=== PATIENT | male | born 1965 | race Caucasian/White ===

== ENCOUNTER 2018-10-05 20:38 | Emergency (ER) | payer MEDICARE, MEDICAID ==
[~2018-10-05] VITALS: Ht 167.6 cm; Wt 83.9 kg
[~2018-10-05 20:38] MED LIST: CLON0.5T60 PO; ENXP80I.8 SQ; GBPN100C PO; LISI20TA PO; MTF500T PO; OXYC-272 PO; SIMV20TA3 PO; WRF2.5T PO; WRF5T PO
--- OUTSIDE RECORDS SUMMARY | 2018-10-05 20:43 | XMS REPORT ---
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.3410 Active 82182368 Problem Small bowel obstruction K56.609 Active 889643895 Problem DVT (deep venous thrombosis) I82.409 Active 865579314 Problem Hyperlipidemia E78.5 Active 22544943 Problem Hyponatremia E87.1 Active 73634892 Problem Pulmonary embolism I26.99 Active 35520095 ALLERGIES Substance Reaction Event Type Date Status Allopurinol shortness of breath Drug Allergy Jul, Active ENCOUNTERS Encounter Location Date Diagnosis [address] [address] Oct, [address] [address] Jul, [address] [address] Jul, Hyperlipidemia E78.5 ; Hypertension I10 ; 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 ; Type 2 diabetes mellitus E11.9 ; Pulmonary embolism I26.99 ; Colon cancer C18.9 ; Chronic pancreatitis K86.1 ; Hyponatremia E87.1 ; DVT (deep venous thrombosis) I82.409 ; Small bowel obstruction K56.609 and Chronic gout due to renal impairment, right hand, 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.[address] [place] [address] Jun, [address] [address] Jun, [address] [address] Jun, IMMUNIZATIONS No Known Immunizations SOCIAL HISTORY Never Assessed REASON FOR VISIT Establish Care PLAN OF CARE Activity Details Follow Up 3 Months Reason:NIDDM fu VITAL SIGNS Height 5'6.5" in 2018-07-15 Weight 195 lbs 2018-07-15 BMI 31 kg/m2 2018-07-15 Blood pressure systolic 142 mmHg 2018-07-15 Blood pressure diastolic 82 mmHg 2018-07-15 MEDICATIONS Medication Instructions Dosage Frequency Start Date End Date Duration Status Albuterol Sulfate HFA 108 (90 Base) MCG/ACT Inhalation every 6 hrs 2 puffs as needed 6h Active Levemir FlexTouch 100 UNIT/ML Subcutaneous at bedtime 40 units Active Gabapentin 300 MG Orally 3 times a day 1 capsule 8h 30 day(s) Active Baclofen 10 MG Orally once daily as needed 1 tablet with food or milk 30 day(s) Active Requip 2 MG Orally Once a day 1 tablet before bedtime 24h 30 day(s) Active Metformin HCl 1000 MG Orally bid 1 tablet with a meal 12h Jun, 30 day(s) Active Fenofibrate 145 MG Orally Once a day 1 tablet with food 24h Jun, 30 day(s) Active Hydrocodone-Acetaminophen 7.5-325 MG Orally every 6 hrs 1 tablet as needed 6h Jun, 15 days Active Pepcid 20 MG Orally 2 times a day 1 tablet at bedtime 12h 30 day(s) Active Fentanyl 75 MCG/HR Transdermal EVERY 3 DAYS 1 patch to skin Jul, 30 days Active Zolpidem Tartrate 10 MG Orally Once a day 1 tablet at bedtime as needed 24h Active Contour Next Test - as directed Active Carafate 1 GM Orally 3 times a day 1 tablet on an empty stomach 8h 30 day(s) Active Fish Oil 1000 MG Orally Once a day 1 capsule 24h 30 day(s) Active Eliquis 5 MG Orally Once a day 1 tablet 24h Active Celexa 20 MG Orally Once a day 1 tablet 24h 30 day(s) Active RESULTS No Results PROCEDURES Procedure Date Ordered Result Body Site [facility] VISIT ESTABLISHED PATIENT July 15, 2018 INSTRUCTIONS MEDICATIONS ADMINISTERED No Known Medications MEDICAL (GENERAL) HISTORY Type Description Date Medical History Hyperlipidemia Medical History Hypertension Medical History Factor V deficiency Medical History Type 2 diabetes mellitus Medical History Pulmonary embolism Medical History Colon cancer Medical History Chronic pancreatitis Medical History Hyponatremia Medical History DVT (deep venous thrombosis) Medical History Small bowel obstruction Medical History Chronic gout due to renal impairment, right hand, without tophus (tophi) Surgical History colon resection Surgical History colonoscopy Surgical History finger surgery Surgical History left knee arthroscopy Surgical History right knee arthroscopy Surgical History testicular removal
--- OUTSIDE RECORDS SUMMARY | 2018-10-05 20:44 | XMS REPORT ---
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 1119494 Problem Type 2 diabetes mellitus E11.9 Active 63057472 Problem Hypertension I10 Active 53937526 Problem Chronic pancreatitis K86.1 Active 101997670 Problem Chronic gout due to renal impairment, right hand, 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.3410 Active 23001976 Problem Small bowel obstruction K56.609 Active 208862722 Problem DVT (deep venous thrombosis) I82.409 Active 295104006 Problem Hyperlipidemia E78.5 Active 56316721 Problem Hyponatremia E87.1 Active 23719426 Problem Pulmonary embolism I26.99 Active 79819889 ALLERGIES No Information ENCOUNTERS Encounter Location Date Diagnosis [address] [address] Oct, [address] [address] Jul, [address] [address] Jul, Hyperlipidemia E78.5 ; Hypertension I10 ; 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 ; Type 2 diabetes mellitus E11.9 ; Pulmonary embolism I26.99 ; Colon cancer C18.9 ; Chronic pancreatitis K86.1 ; Hyponatremia E87.1 ; DVT (deep venous thrombosis) I82.409 ; Small bowel obstruction K56.609 and Chronic gout due to renal impairment, right hand, 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.[address] [address] Jun, [address] [address] Jun, [address] [address] Jun, IMMUNIZATIONS No Known Immunizations SOCIAL HISTORY Never Assessed REASON FOR VISIT PA FOR FENTANYL PLAN OF CARE VITAL SIGNS MEDICATIONS Unknown Medications RESULTS No Results PROCEDURES No Known procedures INSTRUCTIONS MEDICATIONS ADMINISTERED No Known Medications MEDICAL [...]
--- OUTSIDE RECORDS SUMMARY | 2018-10-05 20:44 | XMS REPORT | Continuity of Care Document ---
Author Organization Unknown Address Unknown Allergies There is no data. Medications There is no data. Problems There is no data. Procedures There is no data. Results There is no data. Encounters ACCT No. Visit Date/Time Discharge Status Pt. Type Provider Facility Loc./Unit Complaint [id number] 06/05/2013 15:36:00 06/05/2013 23:59:59 CLS Outpatient [id number] 04/15/2013 11:33:00 04/15/2013 23:59:59 CLS Outpatient [id number] 04/10/2013 23:29:00 04/10/2013 23:59:59 CLS Outpatient [id number] 04/01/2013 10:59:00 04/01/2013 23:59:59 CLS Outpatient [id number] 03/30/2013 22:31:00 03/30/2013 23:59:59 CLS Outpatient [id number] 03/25/2013 15:13:00 03/25/2013 23:59:59 CLS Outpatient [id number] 01/09/2013 08:00:00 01/09/2013 23:59:59 CLS Outpatient [id number] 01/08/2013 15:34:00 01/08/2013 23:59:59 CLS Outpatient [id number] 12/28/2012 23:24:00 12/28/2012 23:59:59 CLS Outpatient [id number] 12/17/2012 10:11:00 12/17/2012 23:59:59 CLS Outpatient [id number] 12/16/2012 19:58:00 12/16/2012 23:59:59 CLS Outpatient [id number] 12/12/2012 13:54:00 12/12/2012 23:59:59 CLS Outpatient [id number] 11/28/2012 17:09:00 11/28/2012 23:59:59 CLS Outpatient [id number] 11/21/2012 19:15:00 11/21/2012 23:59:59 CLS Outpatient [id number] 10/09/2012 10:25:00 10/09/2012 23:59:59 CLS Outpatient [id number] 07/15/2018 09:00:00 07/15/2018 23:59:59 CLS Outpatient [place], MILANA GONZALEZ
[2018-10-05] MEDS ORDERED: AMOX500C2 PO (21:52)
--- NOTE | 2018-10-05 21:54 | ED EENT ---
History of Present Illness General Chief Complaint: Dental Problems/Pain Stated Complaint: DENTAL PAIN Nursing Triage Note: states right front Source: patient Exam Limitations: no limitations History of Present Illness Date Seen by Provider: October 05, 2018 Time Seen by Provider: 21:40 Initial Comments Patient presents to ER by private conveyance with the last 3 or 4 days progressively worsening pain in his right maxillary frontal teeth. He knows the need to be pulled just hasn't had time to do it and being that it is he has not been able to get in with a dentist. He's been using Tylenol and Motrin. He is on Eliquis for factor V Leiden. No fever chills swelli ng or discharge from the mouth. Allergies and Home Medications Allergies Coded Allergies: No Known Drug Allergies (Unverified , 08/27/11) Home Medications Clonazepam 0.5 Mg/Tab Tab.rapdis, 1 EACH PO BID, (Reported) Enoxaparin Sodium 80 Mg/0.8 Ml Disp.syrin, 1 EACH SQ DAILY, (Reported) Gabapentin 100 Mg Cap, 100 MG PO TID, (Reported) Lisinopril 20 Mg Tablet, 20 MG PO BID, (Reported) Metformin Hcl 500 Mg Tablet, 1 EACH PO BID WITH MEALS, (Reported) Oxycodone Hcl/Acetaminophen 1 Tab Tablet, 1 TAB PO Q4H PRN, (Reported) Simvastatin 20 Mg Tablet, 20 MG PO HS, (Reported) Warfarin Sod 5 Mg Tab, 5 MG PO MORNING, (Reported) Warfarin Sod 2.5 Mg Tab, 2.5 MG PO PM, (Reported) Patient Home Medication List Home Medication List Reviewed: Yes Review of Systems Review of Systems Constitutional: No chills, No diaphoresis Eyes: Denies Blurred Vision, Denies Drainage Ears: Denies Dizziness, Denies Pain Nose: denies clots, denies congestion Mouth: see HPI; denies clots, denies loose teeth Past Pvkkgdw-Kbggmx-Czctsm Hx Patient Social History Alcohol Use: Denies Use Recreational Drug Use: No Smoking Status: Current Everyday Smoker Type Used: Cigarettes Recent Foreign Travel: No Contact w/Someone Who Travel: No Recent Infectious Disease Expo: No Immunizations Up To Date Date of Influenza Vaccine: Jun 13, 2011 Physical Exam Vital Signs Vital Signs - First Documented 10/05/18 20:45 Temp 97.3 Pulse 62 Resp 18 B/P (MAP) 178/88 (118) Height, Weight, BMI Height: 5'6.00" Weight: 185lbs. oz. 83.217220vr; BMI Method:Stated General Appearance: WD/WN, no apparent distress Eyes: bilateral eye normal inspection, bilateral eye PERRL, bilateral eye EOMI Ears: bilateral ear auricle normal, bilateral ear canal normal, bilateral ear TM normal Nose: normal inspection; No active bleeding Mouth/Throat: other (advanced dental caries, nearly edentulous. No evidence of overt abscess.) Progress/Results/Core Measures Results/Orders My Orders Orders - IRVIN HERRERA Lidocaine 2% Viscous 15 Ml (Xylocaine Vi (10/05/18 22:00) Vital Signs/I&O 10/05/18 20:45 Temp 97.3 Pulse 62 Resp 18 B/P (MAP) 178/88 (118) Blood Pressure Mean: 118 Departure Impression Primary Impression: Dental caries Disposition: 01 HOME, SELF-CARE Condition: Stable Departure-Patient Inst. Decision time for Depature: 21:51 Referrals: MILANA FUNG MD (PCP/Family) Primary Care Physician Patient Instructions: Dental Pain (DC) Add. Discharge Instructions: Amoxicillin one capsule 3 times a day with food for the next week. Tylenol 1000 mg every 8 hours as necessary for pain. Apply 5-10 mL of viscous lidocaine on the gauze directly onto the tooth every 4 hours as needed for breakthrough pain. Follow-up with a dentist this week. All discharge instructions reviewed with patient and/or family. Voiced understanding. Scripts Amoxicillin (Amoxicillin) 500 Mg Capsule 500 MG PO TID, #21 CAP 0 Refills Prov: IRVIN HERRERA 10/05/18 IRVIN HERRERA October 05, 2018 21:54
[2018-10-05 22:00] VITALS: BP 165/90
[2018-10-05] MEDS ORDERED: LIDOCAINE 2% VISCOUS 15 ML UDC PO ONE (22:00)
== END 2018-10-05 21:50 | disposition home or self-care (01) ==
LOC: EDUNIT# 20:38 → ER FS 20:40
DX: K02.9 Dental caries, unspecified (principal); D68.2 Hereditary deficiency of other clotting factors; F17.210 Nicotine dependence, cigarettes, uncomplicated; Z79.01 Long term (current) use of anticoagulants; Z79.84 Long term (current) use of oral hypoglycemic drugs

== ENCOUNTER → 2019-06-05 | Outpatient (CLI) | payer MEDICARE, MEDICAID ==
[~2019-06-05] MED LIST changes: +AMOX500C2 PO; +CATHETER FLUSH 10 ML SYR IV PRN; +HOLD METFORMIN - RECEIVED CONTRAST 20 ML VIAL IV SCH; +IOHEXOL 350 MG/ML 100 ML (OMNIPAQUE 350) VIAL IV ONE; +NS 100 ML (IVPB) BAG IV ONE
[2019-06-05 09:19] LABS: ALANINE AMINOTRANSFERASE 35 U/L (0-55); ALBUMIN 4.3 GM/DL (3.2-4.5); ALKALINE PHOSPHATASE 47 U/L (40-136); BILIRUBIN,TOTAL 0.2 MG/DL (0.1-1.0); BUN/CREATININE RATIO 29; CALCIUM 9.6 MG/DL (8.5-10.1); CARBON DIOXIDE 28 MMOL/L (21-32); CHLORIDE 102 MMOL/L (98-107); CREATININE SERUM 0.99 MG/DL (0.60-1.30); GFR ESTIMATED > 60; GLUCOSE 97 MG/DL (70-105); SODIUM 142 MMOL/L (135-145); TOTAL PROTEIN 7.2 GM/DL (6.4-8.2)
--- NOTE | 2019-06-05 11:10 | Diagnostic Imaging Report ---
PROCEDURE: CT abdomen with contrast only. TECHNIQUE: Multiple contiguous axial images were obtained through the abdomen after the administration of intravenous contrast. Auto Exposure Controls were utilized during the CT exam to meet ALARA standards for radiation dose reduction. INDICATION: Abdominal pain. FINDINGS: The previous CT abdomen/pelvis exam of 09/06/2011 noted postsurgical changes, consistent with a prior right hemicolectomy. There was no acute abnormality identified. In the interval since the prior exam, the patient has undergone another surgical procedure and there is now an ostomy site overlying the right lower quadrant. It also appears that much of the colon has also been resected. Correlation with the patient's surgical history would be recommended. There is no evidence for obstruction of the bowel in the region of the ostomy site but there is herniation of the mesenteric fat into the peristomal region. Reportedly, the patient had a cyst removed from his pancreas two years ago. There was no evidence for a cyst involving the pancreas on the 2011 exam. On this study, there is still no sign of a cystic mass arising from the pancreas. The liver is of lower density than usually seen. This does suggest fatty metamorphosis. In the interval since the prior exam, the gallbladder has also been resected. The spleen, pancreas, adrenals, kidneys, aorta, and inferior vena cava show no sign of an acute abnormality. The stomach is partially filled with fluid and consequently difficult to assess. The lung bases are clear. The bone windows show no sign of a fracture or of a destructive lesion. IMPRESSION: 1. In the interval since the prior exam, the patient has undergone a cholecystectomy and most likely at least a partial resection of the colon. There is now an ostomy site in place on the right. Correlation with the patient's surgical history would be recommended. 2. There is herniation of the mesenteric fat into the ostomy site. There is no obstruction of the bowel in this area, however. 3. There is no acute abnormality of the abdomen noted, otherwise. Dictated by: Dictated on workstation # [id number]
== END ==
LOC: LAB FS 08:15
PROVIDERS: ATTEND Family Medicine
DX: I10 Essential (primary) hypertension (principal); E11.9 Type 2 diabetes mellitus without complications; E78.5 Hyperlipidemia, unspecified; Z93.2 Ileostomy status
CPT/HCPCS: 36415; 74160; 80053

== ENCOUNTER 2019-10-01 04:07 | Inpatient (IN) | payer MEDICARE, MEDICAID ==
[~2019-10-01] VITALS: Ht 170.2 cm; Wt 86.1 kg
[~2019-10-01 04:07] MED LIST changes: -CATHETER FLUSH 10 ML SYR IV PRN; -HOLD METFORMIN - RECEIVED CONTRAST 20 ML VIAL IV SCH; -IOHEXOL 350 MG/ML 100 ML (OMNIPAQUE 350) VIAL IV ONE; -NS 100 ML (IVPB) BAG IV ONE
--- OUTSIDE RECORDS SUMMARY | 2019-10-01 04:13 | XMS REPORT | Continuity of Care Document ---
Author Organization Unknown Address Unknown Phone Unavailable Allergies Active Description Code Type Severity Reaction Onset Reported/Identified Relationship to Patient Clinical Status Yes LISINOPRIL SEVERE SEVERE Yes No Known Drug Allergies [id number] Drug Allergy Unknown N/A 08/27/2011 Medications Medication Packaging Start Date St op Date Route Dosage Sig NORMAL SALINE 1000CC IV BAG INJ 0.9 % (NS 1000CC IV BAG) ml 01/05/2019 01/20/2019 CONTINUOUSEVERY 0 Hour NORMAL SALINE 1000CC IV BAG INJ 0.9 % (NS 1000CC IV BAG) ml 01/19/2019 02/03/2019 CONTINUOUSEVERY 0 Hour CEFAZOLIN VIAL INJ 1 GM (ANCEF) GM 01/19/2019 01/19/2019 ONCE&1215 Problems Date Dx Coded Attending Type Code Diagnosis Diagnosed By 10/05/2018 ADY GONZALES MD Ot 415.19 OTH PULMON EMBOLISM/INFARCT 10/05/2018 ADY GONZALES MD Ot 415.19 OTH PULMON EMBOLISM/INFARCT 10/05/2018 IRVIN HERRERA MD Ot D68. 2 HEREDITARY DEFICIENCY OF OTHER CLOTTING 10/05/2018 IRVIN HERRERA MD Ot F17.210 NICOTINE DEPENDENCE, CIGARETTES, UNCOMPL 10/05/2018 IRVIN HERRERA MD Ot K02. 9 DENTAL CARIES, UNSPECIFIED 10/05/2018 IRVIN HERRERA MD Ot K08. 89 OTHER SPECIFIED DISORDERS OF TEETH AND S 10/05/2018 IRVIN HERRERA MD Ot Z79. 01 FAMILY PSYCHOLOGIST (CURRENT) USE OF ANTICOAGULANT 10/05/2018 IRVIN HERRERA MD Ot Z79. 84 FAMILY PSYCHOLOGIST (CURRENT) USE OF ORAL HYPOGLYC 10/05/2018 ADY GONZALES MD Ot 415.19 OTH PULMON EMBOLISM/INFARCT 10/05/2018 ADY GONZALES MD Ot 415.19 OTH PULMON EMBOLISM/INFARCT 10/08/2018 IRVIN HERRERA MD Ot D68. 2 HEREDITARY DEFICIENCY OF OTHER CLOTTING 10/08/2018 IRVIN HERRERA MD Ot F17.210 NICOTINE DEPENDENCE, CIGARETTES, UNCOMPL 10/08/2018 IRVIN HERRERA MD Ot K02. 9 DENTAL CARIES, UNSPECIFIED 10/08/2018 IRVIN HERRERA MD Ot K08. 89 OTHER SPECIFIED DISORDERS OF TEETH AND S 10/08/2018 IRVIN HERRERA MD Ot Z79. 01 FAMILY PSYCHOLOGIST (CURRENT) USE OF ANTICOAGULANT 10/08/2018 IRVIN HERRERA MD Ot Z79. 84 FAMILY PSYCHOLOGIST (CURRENT) USE OF ORAL HYPOGLYC 06/08/2019 SELF MILANA CANO Ot E11.9 TYPE 2 DIABETES MELLITUS WITHOUT COMPLIC 06/08/2019 SELF MILANA CANO Ot E78.5 HYPERLIPIDEMIA, UNSPECIFIED 06/08/2019 SELF MILANA CANO Ot I10 ESSENTIAL (PRIMARY) HYPERTENSION 06/08/2019 SELF MILANA CANO Ot Z93.2 ILEOSTOMY STATUS 06/18/2019 SELF MILANA CANO Ot E11.9 TYPE 2 DIABETES MELLITUS WITHOUT COMPLIC 06/18/2019 SELF MILANA CANO Ot E78.5 HYPERLIPIDEMIA, UNSPECIFIED 06/18/2019 SELF MILANA CANO Ot I10 ESSENTIAL (PRIMARY) HYPERTENSION 06/18/2019 SELF MILANA CANO Ot Z93.2 ILEOSTOMY STATUS 08/21/2019 SELF MILANA CANO Ot E11.9 TYPE 2 DIABETES MELLITUS WITHOUT COMPLIC 08/21/2019 SELF MILANA CANO Ot E78.5 HYPERLIPIDEMIA, UNSPECIFIED 08/21/2019 SELF MILANA CANO Ot I10 ESSENTIAL (PRIMARY) HYPERTENSION 08/21/2019 SELF MILANA CANO Ot Z93.2 ILEOSTOMY STATUS Procedures There is no data. Results Test Result Range LIPID PANEL - 10/15/18 09:52 CHOLESTEROL, TOTAL 194 mg/dL <200 HDL CHOLESTEROL 36 mg/dL >40 TRIGLYCERIDES 681 mg/dL <150 LDL-CHOLESTEROL mg/dL (calc) NRG CHOL/HDLC RATIO 5.4 (calc) <5.0 NON HDL CHOLESTEROL 158 mg/dL (calc) <13 0 MICROALBUMIN/CREATININE RATIO, URINE - 0 10/15/18 09:52 CREATININE, RANDOM URINE 211 mg/dL 20-32 0 MICROALBUMIN 11.6 mg/dL See Note: MICROALBUMIN/CREATININE RATIO, RANDOM URINE 55 mcg /mg creat <30 CMP - 10/15/18 09:52 GLUCOSE 166 mg/dL 65-99 UREA NITROGEN (BUN) 15 mg/dL 7-25 CREATININE 0.71 mg/dL 0.70-1.33 eGFR NON-AFR. [facility] 106 mL/min/1.73m2 > OR = 60 eGFR 122 mL/min/1.73m2 > OR = 60 BUN/CREATININE RATIO NOT APPLICABLE (calc) 6-22 SODIUM 143 mmol/L 135-146 POTASSIUM 4.0 mmol/L 3.5-5.3 CHLORIDE 107 mmol/L 98-110 CARBON DIOXIDE 26 mmol/L 20-32 CALCIUM 9.3 mg/dL 8.6-10.3 PROTEIN, TOTAL 6.8 g/dL 6.1-8.1 ALBUMIN 4.0 g/dL 3.6-5.1 GLOBULIN 2.8 g/dL (calc) 1.9-3.7 ALBUMIN/GLOBULIN RATIO 1.4 (calc) 1.0-2. 5 BILIRUBIN, TOTAL 0.3 mg/dL 0.2-1.2 ALKALINE PHOSPHATASE 59 U/L 40-115 AST 45 U/L 10-35 ALT 42 U/L 9-46 A1C - 10/15/18 09:52 HEMOGLOBIN A1c 7.1 % of total Hgb <5.7 Comprehensive Metabolic Panel - 01/01/19 08:38 Albumin 4.0 g/dL 3.6-5.1 ALP 54 U/L 35-130 ALT 47 U/L 6-45 Anion Gap 14 6-14 AST 38 U/L 2-40 BUN 13 mg/dL 5-25 Calcium 9.1 mg/dL 8.3-10.4 Chloride 103 mmol/L 95-114 CO2 25 mEq/L 22-33 Creat 0.79 mg/dL 0.50-1.50 eGFR 102 mL/min/1.73m2 >59 Globulin 2.8 g/dL 2.3-3.5 Glucose 120 mg/dL 70-110 Osmo 286 280-295 Potassium 4.2 mmol/L 3.5-5.3 Sodium 138 mmol/L 134-148 TBil 0.4 mg/dL 0.2-1.2 TP 6.8 g/dL 6.0-8.3 MRSA Screen - 01/01/19 08:38 FINAL CULTURE RESULTS MRSA POSITIVE Nasal Culture MEDIA PLATED Setup at 08:55 on 01/01/2019 Comprehensive metabolic panel - 06/05/19 08:37 Serum or plasma sodium measurement (moles/volume) 142 mmol/L 135-145 Serum or plasma potassium measurement (moles/volume) 4.0 mmol/L 3.6-5.0 Serum or plasma chloride measurement (moles/volume) 102 mmol/L 98-107 Carbon dioxide 28 mmol/L 21-32 Serum or plasma anion gap determination (moles/volume) 12 mmol/L 5-14 Serum or plasma urea nitrogen measurement (mass/volume ) 29 mg/dL 7-18 Serum or plasma creatinine measurement (mass/volume) 0.99 mg/dL 0.60-1.30 Serum or plasma urea nitrogen/creatinine mass ratio 29 NRG Serum or plasma creatinine measurement w ith calculation of estimated glomerular filtration rate > NRG Serum or plasma glucose measurement (mass/volume) 97 mg/dL 70-105 Serum or plasma calcium measurement (mass/volume) 9.6 mg/dL 8.5-10.1 Serum or plasma total bilirubin measurement (mass/volu me) 0.2 mg/dL 0.1-1.0 Serum or plasma alkaline phosphatase iram surement (enzymatic activity/volume) 47 U/L 40-136 Serum or plasma aspartate aminotransfera se measurement (enzymatic activity/volume) 30 U/L 5-34 Serum or plasma alanine aminotransferase measurement (enzymatic activity/volume) 35 U/L 0-55 Serum or plasma protein measurement (mass/volume) 7.2 g/dL 6.4-8.2 Serum or plasma albumin measurement (mass/volume) 4.3 g/dL 3.2-4.5 MICROALBUMIN/CREATININE RATIO, URINE - 0 08/25/19 12:08 CREATININE, RANDOM URINE 162 mg/dL 20-32 0 MICROALBUMIN 1.2 mg/dL See Note: MICROALBUMIN/CREATININE RATIO, RANDOM URINE 7 mcg/ mg creat <30 CMP - 08/25/19 12:08 GLUCOSE 240 mg/dL 65-99 UREA NITROGEN (BUN) 30 mg/dL 7-25 CREATININE 1.17 mg/dL 0.70-1.33 eGFR NON-AFR. [facility] 69 mL/min/1.73m2 > OR = 60 eGFR 80 mL/min/1.73m2 > OR = 60 BUN/CREATININE RATIO 26 (calc) 6-22 SODIUM 139 mmol/L 135-146 POTASSIUM 3.6 mmol/L 3.5-5.3 CHLORIDE 100 mmol/L 98-110 CARBON DIOXIDE 30 mmol/L 20-32 CALCIUM 9.5 mg/dL 8.6-10.3 PROTEIN, TOTAL 6.9 g/dL 6.1-8.1 ALBUMIN 4.2 g/dL 3.6-5.1 GLOBULIN 2.7 g/dL (calc) 1.9-3.7 ALBUMIN/GLOBULIN RATIO 1.6 (calc) 1.0-2. 5 BILIRUBIN, TOTAL 0.4 mg/dL 0.2-1.2 ALKALINE PHOSPHATASE 41 U/L 35-144 AST 26 U/L 10-35 ALT 23 U/L 9-46 Encounters ACCT No. Visit Date/Time Discharge Status Pt. Type Provider Facility Loc./Unit Complaint [id number] 01/19/2019 00:00:00 01/19/2019 15:42: 00 DIS Outpatient Lucille Michaelcuauhtemoc [id number] 01/05/2019 00:00:00 01/05/2019 10:28: 00 DIS Outpatient Haja Adkins [id number] 01/01/2019 08:20:00 01/01/2019 23:59: 00 DIS Outpatient Lucille Michaelcuauhtemoc [id number] 12/31/2018 14:54:38 Document Registration [id number] 05/21/2019 16:15:00 05/21/2019 23:59: 59 CLS Outpatient MILANA FUNG [facility] [id number] 08/25/2019 10:00:00 Document Registration [id number] 10/15/2018 09:30:00 Document Registration [id number] 06/05/2019 08:15:00 020 23:59:59 CLS Outpatient MILANA FUNG MD [facility] LAB FS ILEOSTOMY PRESENT [id number] 10/05/2018 20:40:00 019 21:50:00 DIS Emergency IRVIN HERRERA MD [facility] ER FS DENTAL PAIN [id number] 06/05/2013 15:36:00 014 23:59:59 CLS Outpatient ADY GONZALES MD [facility] LABNPT PULMONARY EMBOLISM AND INFARCTION [id number] 04/15/2013 11:33:00 013 23:59:59 CLS Outpatient ADY GONZALES MD [facility] LABNPT PULMONARY EMBOLISM [id number] 04/10/2013 23:29:00 23:59:59 CLS Outpatient [id number] 04/01/2013 10:59:00 23:59:59 CLS Outpatient [id number] 03/30/2013 22:31:00 23:59:59 CLS Outpatient [id number] 03/25/2013 15:13:00 23:59:59 CLS Outpatient [id number] 01/09/2013 08:00:00 23:59:59 CLS Outpatient [id number] 01/08/2013 15:34:00 23:59:59 CLS Outpatient [id number] 12/28/2012 23:24:00 23:59:59 CLS Outpatient [id number] 12/17/2012 10:11:00 23:59:59 CLS Outpatient [id number] 12/16/2012 19:58:00 23:59:59 CLS Outpatient [id number] 12/12/2012 13:54:00 23:59:59 CLS Outpatient [id number] 11/28/2012 17:09:00 23:59:59 CLS Outpatient [id number] 11/21/2012 19:15:00 23:59:59 CLS Outpatient [id number] 10/09/2012 10:25:00 013 23:59:59 CLS Outpatient [id number] 10/01/2019 04:10:[address] Emergency JULIO CANO, [facility] ER FS VOMITING
[2019-10-01] MEDS ORDERED: NS IV 1000 ML 1,000 ML IV STA ×2 (04:16→05:30)
--- NOTE | 2019-10-01 04:20 | ED General ---
General Stated Complaint: VOMITING Source of Information: Patient, EMS, EMS Notes Reviewed, Old Records, RN/MD Exam Limitations: No Limitations (HECTOR GALDAMEZ MD) History of Present Illness Date Seen by Provider: October 01, 2019 Time Seen by Provider: 04:10 Initial Comments This patient is a 54-year-old male presents to the emergency department for nausea vomiting. Patient states he been having issues with nausea and dry heaving for the past 4 days and started vomiting yesterday. Patient states she feels weak. Blood pressure low on arrival is 88 systolic. Patient does have a colostomy bags had multiple surgeries on his abdomen in the past due to cancer. Patient also has long history of acute pancreatitis. Patient does not describe any significant abdominal pain. Does have positive stool in his colostomy. Patient has a history of doing the same with nausea and reflux dry heaving and vomiting. We will do medical evaluation treatment is needed. Timing/Duration: 4-5 Days Severity: Moderate Associated Systoms: Nausea/Vomiting (HECTOR GALDAMEZ MD) Allergies and Home Medications Allergies Coded Allergies: No Known Drug Allergies (Unverified , 08/27/11) Home Medications Amoxicillin 500 Mg Capsule, 500 MG PO TID Prescribed by: IRVIN HERRERA on 10/05/182151 Clonazepam 0.5 Mg/Tab Tab.rapdis, 1 EACH PO BID, (Reported) Enoxaparin Sodium 80 Mg/0.8 Ml Disp.syrin, 1 EACH SQ DAILY, (Reported) Gabapentin 100 Mg Cap, 100 MG PO TID, (Reported) Lisinopril 20 Mg Tablet, 20 MG PO BID, (Reported) Metformin Hcl 500 Mg Tablet, 1 EACH PO BID WITH MEALS, (Reported) Oxycodone Hcl/Acetaminophen 1 Tab Tablet, 1 TAB PO Q4H PRN, (Reported) Simvastatin 20 Mg Tablet, 20 MG PO HS, (Reported) Warfarin Sod 5 Mg Tab, 5 MG PO MORNING, (Reported) Warfarin Sod 2.5 Mg Tab, 2.5 MG PO PM, (Reported) Patient Home Medication List Home Medication List Reviewed: Yes (HECTOR GALDAMEZ MD) Review of Systems Review of Systems Constitutional: no symptoms reported; No see HPI, No chills, No diaphoresis, No dizziness, No fever, No malaise, No weakness, No weight gain, No weight loss, No other EENTM: No see HPI, No no symptoms reported, No ear discharge, No hearing loss, No ear pain, No blurred vision, No double vision, No eye pain, No tearing, No vision loss, No dental problems, No hoarseness, No mouth pain, No mouth swelling, No epistaxis, No nose congestion, No nose pain, No throat pain, No throat swelling, No other Respiratory: No no symptoms reported, No see HPI, No cough, No dyspnea on exertion, No hemoptysis, No orthopnea, No phlegm, No short of breath, No strido r, No wheezing, No other Cardiovascular: No no symptoms reported, No see HPI, No chest pain, No edema, No Hx of Intervention, No palpitations, No syncope, No vascular heart diseas, No other Gastrointestinal: No RUQ, No LUQ, No RLQ, No LLQ, No no symptoms reported, No see HPI, No abdominal pain, No constipation, No diarrhea, No dysphagia, No hematemesis, No heartburn, No jaundice, No loss of appetite, No melena; nausea, vomiting; No other Genitourinary: No no symptoms reported, No see HPI, No decreased output, No discharge, No dysuria, No frequency, No hematuria, No hesitancy, No incontinence, No nocturia, No pain, No other Musculoskeletal: No no symptoms reported, No see HPI, No back pain, No gout, No joint pain, No joint swelling, No muscle pain, No muscle stiffness, No muscle cramps, No muscle twitching, No muscle weakness, No neck pain, No other Skin: No no symptoms reported, No see HPI, No change in color, No change in hair/nails, No dryness, No hx of skin cancer, No lesions, No lumps, No pruritus, No rash, No other (HECTOR GALDAMEZ MD) All Other Systems Reviewed Negative Unless Noted: Yes (HECTOR GALDAMEZ MD) Past Dhxpdvb-Ktkgcp-Yknkwz Hx Patient Social History Type Used: Cigarettes Recent Foreign Travel: No Contact w/Someone Who Travel: No (HECTOR GALDAMEZ MD) Immunizations Up To Date Date of Influenza Vaccine: Jun 13, 2011 (HECTOR GALDAMEZ MD) Physical Exam Vital Signs Vital Signs - First Documented 10/01/19 04:20 Temp 36.6 Pulse 57 Resp 20 B/P (MAP) 85/45 (58) Pulse Ox 98 O2 Delivery Room Air (PERLA LOYA ) Vital Signs Capillary Refill : (HECTOR GALDAMEZ MD) Height, Weight, BMI Height: 5'6.00" Weight: 185lbs. oz. 83.636845oc; BMI Method:Stated General Appearance: No Apparent Distress, WD/WN HEENT: PERRL/EOMI, TMs Normal, Normal ENT Inspection, Pharynx Normal Neck: Full Range of Motion, Normal Inspection, Non Tender, Supple Respiratory: Chest Non Tender, Lungs Clear, Normal Breath Sounds, No Accessory Muscle Use, No Respiratory Distress Cardiovascular: Regular Rate, Rhythm, No Edema, No Gallop, No JVD, No Murmur, Normal Peripheral Pulses Gastrointestinal: Normal Bowel Sounds, No Organomegaly, No Pulsatile Mass, Non Tender, Soft, Other (colostomy in the right lower side) Extremity: Normal Capillary Refill, Normal Inspection, Normal Range of Motion, Non Tender, No Calf Tenderness, No Pedal Edema Neurologic/Psychiatric: Alert, Oriented x3, No Motor/Sensory Deficits, Normal Mood/Affect Skin: Normal Color, Warm/Dry Lymphatic: No Adenopathy (HECTOR GALDAMEZ MD) Progress/Results/Core Measures Suspected Sepsis SIRS Temperature: Pulse: Respiratory Rate: Laboratory Tests 10/01/19 04:20: White Blood Count 6.0 Blood Pressure / Mean: Laboratory Tests 10/01/19 04:20: Creatinine 2.25H, Platelet Count 144, Total Bilirubin 0.3 (HECTOR GALDAMEZ MD) Results/Orders Lab Results Laboratory Tests Test 10/01/19 04:20 Range/Units White Blood Count 6.0 4.3-11.0 10^3/uL Red Blood Count 3.76 L 4.35-5.85 10^6/uL Hemoglobin 11.8 L 13.3-17.7 G/DL Hematocrit 35 L 40-54 % Mean Corpuscular Volume 93 80-99 FL Mean Corpuscular Hemoglobin 31 25-34 PG Mean Corpuscular Hemoglobin Concent 34 32-36 G/DL Red Cell Distribution Width 13.6 10.0-14.5 % Platelet Count 144 130-400 10^3/uL Mean Platelet Volume 9.4 7.4-10.4 FL Neutrophils (%) (Auto) 62 42-75 % Lymphocytes (%) (Auto) 32 12-44 % Monocytes (%) (Auto) 6 0-12 % Eosinophils (%) (Auto) 0 0-10 % Basophils (%) (Auto) 0 0-10 % Neutrophils # (Auto) 3.7 1.8-7.8 X 10^3 Lymphocytes # (Auto) 2.0 1.0-4.0 X 10^3 Monocytes # (Auto) 0.3 0.0-1.0 X 10^3 Eosinophils # (Auto) 10.0 H 0.0-0.3 10^3/uL Basophils # (Auto) 0.0 0.0-0.1 10^3/uL Sodium Level 137 135-145 MMOL/L Potassium Level 5.0 3.6-5.0 MMOL/L Chloride Level 104 98-107 MMOL/L Carbon Dioxide Level 18 L 21-32 MMOL/L Anion Gap 15 H 5-14 MMOL/L Blood Urea Nitrogen 93 H 7-18 MG/DL Creatinine 2.25 H 0.60-1.30 MG/DL Estimat Glomerular Filtration Rate 30 BUN/Creatinine Ratio 41 Glucose Level 147 H 70-105 MG/DL Calcium Level 9.4 8.5-10.1 MG/DL Corrected Calcium 9.4 8.5-10.1 MG/DL Total Bilirubin 0.3 0.1-1.0 MG/DL Aspartate Amino Transf (AST/SGOT) 28 5-34 U/L Alanine Aminotransferase (ALT/SGPT) 23 0-55 U/L Alkaline Phosphatase 41 40-136 U/L Total Protein 7.2 6.4-8.2 GM/DL Albumin 4.0 3.2-4.5 GM/DL Amylase Level 116 25-125 U/L Lipase 74 8-78 U/L (PERLA LOYA H DO) Medications Given in ED Current Medications Medications Dose Ordered Sig/Quin Route Start Time Stop Time Status Last Admin Dose Admin Ondansetron HCl 4 mg ONCE ONCE IVP 10/01/19 04:30 10/01/19 04:31 DC 10/01/19 04:31 4 MG (PERLA LOYA H DO) Vital Signs/I&O 10/01/19 04:20 Temp 36.6 Pulse 57 Resp 20 B/P (MAP) 85/45 (58) Pulse Ox 98 O2 Delivery Room Air (PERLA LOYA DO) Vital Signs/I&O Capillary Refill : (HECTOR GALDAMEZ MD) Progress Note : Time: 05:55 Progress Note Patient appears to be dehydrated. Creatinine is 2.25. Patient is receiving IV fluids at this time. Awaiting lab results. Care will be transferred to Dr. Francis for shift change. (HECTOR GALDAMEZ MD) Progress Note : Time: 06:05 Progress Note Report given by Dr. Galdamez to Dr. Loya. Patient has received 3 L of normal saline continues to have issues of dehydration his nausea vomiting has improved with the Zofran. Patient has an ileostomy for the past 6 years. Hemoglobin 11.8 sodium 137 potassium 5.0 blood sugar 147 a cemented GFR 30 creatinine 2.25. Patient had presented with 4 days of nausea and vomiting CT scan of the abdomen presents with IMPRESSION: No radiographic evidence of acute chest disease. Relatively gasless abdomen, without evidence of obstruction. No radiographic evidence of acute abdominal process. Dr. Peck's on-call I will call her in regard to admission for dehydration with severe chronic kidney disease. Case reviewed with Dr. Hong and she has accepted the patient diagnosis is gastroenteritis nausea vomiting dehydration 3 L of fluids IV still dehydrated chronic kidney disease stage IV and ileostomy. Patient has agreed to admission to [facility] (PERLA LOYA DO) ECG Initial ECG Impression Date: October 01, 2019 Initial ECG Impression Time: 04:21 Initial ECG Rate: 53 Initial ECG Rhythm: S.Dwayne Initial ECG Intervals: Normal Initial ECG Impression: Normal, Nonspecific Changes Comment Sinus rhythm heart rate 53 nonspecific interventricular conduction delay abnormal in. Q waves. Nonspecific EKG changes. Abnormal EKG. (HECTOR GALDAMEZ MD) Departure Impression Primary Impression: Gastroenteritis Additional Impressions: Dehydration Chronic kidney disease, stage IV (severe) Ileostomy in place Disposition: ADMITTED INPATIENT Condition: Improved Admissions Decision to Admit Reason: Admit from ER (General) (PERLA LOYA DO) Transfer Transfer Reason: Exceeds level of care Time Spoke to Accepting Phy: 07:[address] Hong has accepted the patient with a diagnosis of gastroenteritis with dehydration chronic kidney disease and ileostomy Transfer Time: 07:18 Transfer Facility: [facility] Method of Transfer: EMS (PERLA LOYA DO) Departure-Patient Inst. Referrals: MILANA FUNG MD (PCP/Family) Primary Care Physician Patient Instructions: Chronic Kidney Disease, Ileostomy Care, Dehydration, Adult (DC) Copy Copies To 1: DONTA PECK DO; MILANA FUNG MD, BRIAN W MD October 01, 2019 04:20 PERLA LOYA DO October 01, 2019 06:57
[2019-10-01] MEDS ORDERED: ONDANSETRON 4 MG/2 ML (SDV) Z0FRAN IVP ONE (04:30)
[2019-10-01 04:57] LABS: BASOPHILS % (AUTO) 0 % (0-10); EOSINOPHILS % (AUTO) 0 % (0-10); HEMATOCRIT 35 % (40-54); HEMOGLOBIN 11.8 G/DL (13.3-17.7); LYMPHOCYTES % (AUTO) 32 % (12-44); MEAN CORPUSCULAR HEMOGLOBIN 31 PG (25-34); MEAN CORPUSCULAR HGB CONC 34 G/DL (32-36); MEAN CORPUSCULAR VOLUME 93 FL (80-99); MEAN PLATELET VOLUME 9.4 FL (7.4-10.4); MONOCYTES % (AUTO) 6 % (0-12); NEUTROPHILS % (AUTO) 62 % (42-75); PLATELET COUNT 144 10^3/uL (130-400); RED CELL DISTRIBUTION WIDTH 13.6 % (10.0-14.5)
[2019-10-01 04:58] LABS: MONOCYTES # (AUTO) 0.3 X 10^3 (0.0-1.0); NEUTROPHILS # (AUTO) 3.7 X 10^3 (1.8-7.8)
[2019-10-01 05:20] LABS: BILIRUBIN,TOTAL 0.3 MG/DL (0.1-1.0); CALCIUM 9.4 MG/DL (8.5-10.1); CREATININE SERUM 2.25 MG/DL (0.60-1.30); TOTAL PROTEIN 7.2 GM/DL (6.4-8.2)
--- NOTE | 2019-10-01 06:01 | Diagnostic Imaging Report ---
EXAMINATION: Acute abdominal series TECHNIQUE: Single frontal view of the chest with AP upright and supine views of the abdomen INDICATION: Vomiting in patient with history of colon cancer. COMPARISON: CT abdomen performed on 06/05/2019. FINDINGS: The lungs are clear and the pulmonary vasculature is normal. No pneumothorax or large pleural effusion. Heart size and mediastinal contours are normal. No acute osseous abnormality is appreciated. There is mild gaseous distention of the stomach, with an otherwise relatively gasless abdomen. No evidence of obstruction. No pneumoperitoneum. No organomegaly or abnormal abdominal calcifications are appreciated. Surgical clips are demonstrated in the right upper abdominal quadrant. IMPRESSION: No radiographic evidence of acute chest disease. Relatively gasless abdomen. No evidence of obstruction or radiographic evidence to suggest an acute abdominal process. Dictated by: Dictated on workstation # [id number]
--- OUTSIDE RECORDS SUMMARY | 2019-10-01 07:57 | XMS REPORT | Continuity of Care Document ---
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 [place] 106 mL/min/1.73m2 > OR = 60 eGFR [...] 7-25 CREATININE 1.17 mg/dL 0.70-1.33 eGFR NON-AFR. [place] 69 mL/min/1.73m2 > OR = 60 eGFR [...] Status Pt. Type Provider Facility Loc./Unit Complaint [id number] 01/19/2019 00:00:00 01/19/2019 15:42: 00 DIS Outpatient Lucille Michaelcuauhtemoc [id number] 01/05/2019 00:00:00 01/05/2019 10:28: 00 DIS Outpatient Haja Adkins [id number] 01/01/2019 08:20:00 01/01/2019 23:59: 00 DIS Outpatient Lucille Michaelcuauhtemoc [id number] 12/31/2018 14:54:38 Document Registration [id number] 05/21/2019 16:15:00 05/21/2019 23:59: 59 CLS Outpatient MILANA FUNG [facility] [id number] 08/25/2019 10:00:00 Document Registration [id number] 10/15/2018 09:30:00 Document Registration [id number] 06/05/2019 08:15:00 020 23:59:59 CLS Outpatient MILANA FUNG MD [facility] LAB FS ILEOSTOMY PRESENT [id number] 10/05/2018 20:40:00 019 21:50:00 DIS Emergency IRVIN HERRERA MD [facility] ER FS DENTAL PAIN [id number] 06/05/2013 15:36:00 014 23:59:59 CLS Outpatient ADY GONZALES MD [facility] LABNPT PULMONARY EMBOLISM AND INFARCTION [id number] 04/15/2013 11:33:00 013 23:59:59 CLS Outpatient ADY GONZALES MD [facility] LABNPT PULMONARY EMBOLISM [id number] 04/10/2013 23:29:00 23:59:59 CLS Outpatient [id number] 04/01/2013 10:59:00 23:59:59 CLS Outpatient [id number] 03/30/2013 22:31:00 23:59:59 CLS Outpatient [id number] 03/25/2013 15:13:00 23:59:59 CLS Outpatient [id number] 01/09/2013 08:00:00 23:59:59 CLS Outpatient [id number] 01/08/2013 15:34:00 23:59:59 CLS Outpatient [id number] 12/28/2012 23:24:00 23:59:59 CLS Outpatient [id number] 12/17/2012 10:11:00 23:59:59 CLS Outpatient [id number] 12/16/2012 19:58:00 23:59:59 CLS Outpatient [id number] 12/12/2012 13:54:00 23:59:59 CLS Outpatient [id number] 11/28/2012 17:09:00 23:59:59 CLS Outpatient [id number] 11/21/2012 19:15:00 23:59:59 CLS Outpatient [id number] 10/09/2012 10:25:00 013 23:59:59 CLS Outpatient [id number] 10/01/2019 04:10:[address] Emergency JULIO CANO, [facility] ER FS VOMITING
[2019-10-01 08:55] VITALS: BP 120/77
--- NOTE | 2019-10-01 09:01 | NUR ---
BERTIN SPEARS admitted to room 404-1, with an admitting diagnosis of dehydration, on 10/01/19 from [facility] via [facility]-stretcher, accompanied by staff .BERTIN SPEARS introduced to surroundings, call light, bed controls, phone, TV, temperature control, lights, meal times, smoking policy, visitor policy, side rail policy, bathrooms and showers. Patient Rights given to patient in the handbook. BERTIN SPEARS verbalizes understanding that [facility] is not responsible for the loss or damage to any personal effects or valuables that are kept in the patients posession during their hospitalization. The following Patient Care Plans and discharge were discussed with the patient. BERTIN SPEARS verbalizes understanding of Interdisciplinary Patient Education. Patient was informed about the Rapid Response Team and its purpose.
[2019-10-01] MEDS ORDERED: CATHETER FLUSH 10 ML SYR IV PRN (09:15)
[2019-10-01] MEDS ORDERED: NS IV 1000 ML 1,000 ML IV SCH (09:15)
--- NOTE | 2019-10-01 09:43 | History & Physical-Hospitalist ---
History of Present Illness HPI/Chief Complaint CC: Severe dehydration with acute kidney injury HPI: This is a 54yowM clinic Pt of [facility] in [place] who has a diverting ileostomy six years ago due to colon cancer with recurrence who was set to have the ileostomy revised by Dr. Tariq general surgery in [place], [place], who presents to the ER with dehydration and unable to tolerate intake. He was found to have acute kidney injury, creatinine of 2.2 and clinical signs of profound dehydration. I have asked Dr. pratt to be consulted to be sure the ileostomy is function normally. At this current time Pt denies any pain, he does not smoke or drink alcohol and is retired from carpentry work. He is currently disabled. Source: patient Exam Limitations: no limitations Date Seen 10/01/19 Time Seen by a Provider: 11:00 Attending Physician Kim Peck DO PCP Self,Mamadou CANO Referring Physician Date of Admission October 01, 2019 at 07:52 Home Medications & Allergies Home Medications Reviewed patient Home Medication Reconciliation performed by pharmacy medication reconciliations control technician and/or nursing. Patients Allergies have been reviewed. Allergies Allergies Coded Allergies No Known Drug Allergies (Unverified08/27/11) Past Frihszz-Kmuscz-Uwrbdn Hx Past Med/Social Hx: Reviewed Nursing Past Med/Soc Hx, Reviewed and Corrections made Patient Social History Marrital Status: single Employed/Student: unemployed Alcohol Use: Denies Use Recreational Drug Use: No Smoking Status: Former Smoker Type Used: Cigarettes 2nd Hand Smoke Exposure: No Physical Abuse Screen: No Sexual Abuse: No Recent Foreign Travel: No Contact w/other who traveled: No Recent Hopitalizations: No Recent Infectious Disease Expo: No Immunizations Up To Date Date of Pneumonia Vaccine: Jun 13, 2011 Date of Influenza Vaccine: Jun 13, 2011 Seasonal Allergies Seasonal Allergies: No Past Medical History Surgeries: Abdominal, Bowel Surgery, Coronary Stent Cardiac: Heart Attack, Hypertension Endocrine: Diabetes, Non-Insulin dep Cancer: Colon History of Blood Disorders: No Family History Alcoholism Alzheimer's disease Arthritis Asthma Cardiovascular disease Cataracts Colon cancer Coronary thrombosis Diabetes mellitus Hypertension Review of Systems Constitutional: see HPI, malaise, weakness EENTM: no symptoms reported Respiratory: no symptoms reported Cardiovascular: no symptoms reported Gastrointestinal: loss of appetite, nausea, vomiting Genitourinary: no symptoms reported Musculoskeletal: no symptoms reported Skin: no symptoms reported Psychiatric/Neurological: No Symptoms Reported All Other Systems Reviewed Negative Unless Noted: Yes Physical Exam Physical Exam Vital Signs Vital Signs - First Documented 10/01/19 04:20 Temp 36.6 Pulse 57 Resp 20 B/P (MAP) 85/45 (58) Pulse Ox 98 O2 Delivery Room Air Capillary Refill : Less Than 3 Seconds Height, Weight, BMI Height: 5'6.00" Weight: 185lbs. oz. 83.821166eo; 29.72 BMI Method:Stated General Appearance: No Apparent Distress, WD/WN, Chronically ill Eyes: Right Eye Normal Inspection, Right Eye PERRL HEENT: PERRL/EOMI, Normal ENT Inspection, Pharynx Normal, Moist Mucous M embranes Neck: Full Range of Motion, Normal Inspection, Non Tender Respiratory: Chest Non Tender, Lungs Clear, Normal Breath Sounds, No Accessory Muscle Use, No Respiratory Distress Cardiovascular: Regular Rate, Rhythm, No Edema, No Gallop, No JVD, No Murmur, Normal Peripheral Pulses Gastrointestinal: Normal Bowel Sounds, No Organomegaly, No Pulsatile Mass, Non Tender, Soft Back: Normal Inspection, No CVA Tenderness, No Vertebral Tenderness Extremity: Normal Capillary Refill, Normal Inspection, Normal Range of Motion, Non Tender, No Calf Tenderness, No Pedal Edema Neurologic/Psychiatric: Alert, Oriented x3, No Motor/Sensory Deficits, Normal Mood/Affect Skin: Normal Color, Warm/Dry Lymphatic: No Adenopathy Results Results/Procedures Labs Laboratory Tests 10/01/19 04:20 Patient resulted labs reviewed. Assessment/Plan Admission Diagnosis Assessment: ARF Colon cancer hx Ostomy Former smoker RLS Plan: IVF Dr Jorge consultation appreciated Monitor creatinine and output Home meds Admission Status: Inpatient Order (span 2 midnights) Reason for Inpatient Admission: ARF with dehydration Diagnosis/Problems Diagnosis/Problems (1) Renal failure (2) Dehydration Status: Acute (3) Ileostomy in place Status: Acute Clinical Quality Measures DVT/VTE Risk/Contraindication: Risk Factor Score Per Nursin RFS Level Per Nursing on Admit: 2=Moderate KIM PECK DO October 01, 2019 09:43
[2019-10-01] MEDS ORDERED: DOCUSATE SODIUM 100 MG (COLACE) CAP PO PRN (09:45)
[2019-10-01] MEDS ORDERED: fentaNYL INJECTION 100 MCG/2 ML AMP IVP PRN (09:45)
[2019-10-01] MEDS ORDERED: diphenhydrAMINE 25 MG TAB (BENADRYL) PO PRN (09:45)
[2019-10-01] MEDS ORDERED: ONDANSETRON 4 MG/2 ML (SDV) Z0FRAN IVP PRN (09:45)
[2019-10-01] MEDS ORDERED: MELATONIN 3 MG TABLET PO PRN (09:45)
[2019-10-01] MEDS ORDERED: CALCIUM CARBONATE 500 MG (TUMS) TAB.CHEW PO PRN (09:45)
[2019-10-01] MEDS ORDERED: ONDANSETRON 4 MG (ZOFRAN) ORAL DISSOLVE TAB PO PRN (09:45)
[2019-10-01] MEDS ORDERED: ACETAMINOPHEN 500 MG TAB (TYLENOL) PO PRN (09:45)
[2019-10-01] MEDS: NS IV 1000 ML 1,000 ML IV SCH ×2 (09:46→18:12)
[2019-10-01] MEDS: ENOXAPARIN 40 MG/0.4 ML (LOVENOX) SYR SC SCH (10:13)
[2019-10-01] MEDS: HYDROcodone/APAP 5 MG/325 MG (LORTAB) TAB PO PRN ×2 (10:14→21:27)
[2019-10-01] MEDS ORDERED: CITA20TA9 PO (11:06)
[2019-10-01] MEDS ORDERED: BACL10TA PO (11:06)
[2019-10-01] MEDS ORDERED: IBUP-2473 PO (11:06)
[2019-10-01] MEDS ORDERED: INSU100I29 SC (11:06)
[2019-10-01] MEDS ORDERED: OMEG-179 PO (11:06)
[2019-10-01] MEDS ORDERED: ROPI2TAB6 PO (11:06)
[2019-10-01] MEDS ORDERED: METF-399 PO (11:06)
[2019-10-01] MEDS ORDERED: FENT1PAT9 TD (11:06)
[2019-10-01] MEDS ORDERED: HYDR-4342 PO (11:06)
[2019-10-01] MEDS ORDERED: OLME1TAB82 PO (11:15)
[2019-10-01] MEDS ORDERED: FENO145T26 PO (11:15)
[2019-10-01] MEDS ORDERED: GABA300C PO (11:15)
[2019-10-01] MEDS ORDERED: APIX5TAB PO (11:19)
[2019-10-01 11:36] VITALS: BP 112/66
--- NOTE | 2019-10-01 11:51 | NUR ---
SPOKE WITH THE PT, WENT THRU THE EXT MED HISTORY AND CALLED [facility] KRISTINA ALVARENGA TO COMPLETE THE MED REC ELIQUIS 5MG- THE DIRECTIONS AT THE PHARMACY SHOW 1 TAB BID- HOWEVER THE PT IS TAKING 2 TABS HS. I ASKED THE PT IF HE WAS DIRECTED TO TAKE IT THAT WAY FROM A PROVIDER OR IF HE TOOK IT THAT WAY ON HIS OWN- THE PT SAID IT IS EASIER TO REMEMBER TO TAKE THINGS IN THE EVENING SO INSTEAD OF TAKING 1 TWICE DAILY HE JUST TAKES 2 AT BEDTIME. I DID ENTER THIS ON THE MED REC HE IS TRULY TAKING INCASE WE NEED TO AUGUSTINE FOR FUTURE USE THE FOLLOWING DATES ARE FROM [facility] THAT DO NOT SHOW ON THE EXT MED HISTORY: 07-09-2019 GABAPENTIN 300MG #270/90DS 07-09-2019 ELIQUIS 5MG #180/90DS 08-17-2019 FENOFIBRATE 145MG #90/90DS 08-25-2019 OLMESARTAN/HCTZ 20/12.5MG #60/60DS BACLOFEN 10MG- DIRECTIONS SHOW 1 TAB TID PRN, THE PT JUST TAKES IT 1 TAB HS OTC MEDS: FISH OIL IBUPROFEN PRN
[2019-10-01 15:26] VITALS: BP 86/51
[2019-10-01 18:41] VITALS: BP 137/77
[2019-10-01 19:00] VITALS: BP 115/65
--- NOTE | 2019-10-01 20:23 | NUR ---
PT REQUESTING A FEW HOME MEDICATIONS TO BE RESTARTED. NOTIFIED DR. PECK. HOME MEDICATIONS RESTARTED: BACLOFEN 10 MG PO HS CELEXA 30 MG PO HS FENOFIBRATE 145 MG PO HS GABAPENTIN 300 MG PO TID ROPINROLE 3 MG PO HS
--- NOTE | 2019-10-01 20:36 | Consultation - Surgery ---
History of Present Illness History of Present Illness Patient Consulted On(leonarda/time) 10/01/19 20:31 Date Seen by Provider: October 01, 2019 Time Seen by Provider: 16:29 History of Present Illness Consult requested by Dr. Acevedo for gastroenteritis Patient is a 54-year-old male who for approximately 4-5 days has not been feeling well. He's been having nausea and then recently having some emesis. Patient states he has has very minimal abdominal discomfort which he has on a regular basis and is on different from any other time. Very minimal discomfort. No radiation of pain. Patient having a hard time with maintaining hydration. 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 He has had some stool out of the ileostomy. Patient also notes a small mass on his ileostomy which he states that Dr. weeks is planning on resection and revision of his ileostomy. No other complaints at this time except for being fatigued he hasn't gotten much sleep. Denies any fever sweats chills shortness of breath or chest pain at this time. Allergies and Home Medications Allergies Coded Allergies: No Known Drug Allergies (Unverified , 08/27/11) Home Medications Apixaban 5 Mg Tablet, 10 MG PO HS, (Reported) TAKES 2 (5MG) TABS AT BEDTIME Baclofen 10 Mg Tablet, 10 MG PO HS, (Reported) Citalopram Hydrobromide 20 Mg Tablet, 30 MG PO HS, (Reported) TAKES 1 & 20MG TABS Fenofibrate Nanocrystallized 145 Mg Tablet, 145 MG PO HS, (Reported) Fentanyl 1 Each Patch.td72, 50 MCG TD Q72H, (Reported) Gabapentin 300 Mg Capsule, 300 MG PO TID, (Reported) Hydrocodone/Acetaminophen 1 Each Tablet, 1 TAB PO HS PRN for PAIN-MODERATE (5- 7), (Reported) Ibuprofen 200 Mg Tablet, 800 MG PO Q8H PRN for PAIN-MILD (1-4), (Reported) Insulin Detemir 100 Unit/1 Ml Insuln.pen, 40 UNITS SC HS, (Reported) Metformin HCl 1,000 Mg Tablet, 1,000 MG PO BID, (Reported) Olmesartan/Hydrochlorothiazide 1 Each Tablet, 1 EACH PO HS, (Reported) [place]-3S/Dha/Epa/Fish Oil 1 Each Capsule, 1 EACH PO BID, (Reported) Ropinirole HCl 2 Mg Tablet, 3 MG PO HS, (Reported) TAKES 1 & OF A 2MG TAB Patient Home Medication List Home Medication List Reviewed: Yes Past Yqxbfkj-Wvrghw-Vyvhic Hx Patient Social History Alcohol Use: Denies Use Recreational Drug Use: No Smoking Status: Former Smoker Type Used: Cigarettes 2nd Hand Smoke Exposure: No Recent Foreign Travel: No Contact w/Someone Who Travel: No Recent Infectious Disease Expo: No Recent Hopitalizations: No Physical Abuse Screen: No Sexual Abuse: No Immunizations Up To Date Date of Pneumonia Vaccine: Jun 13, 2011 Date of Influenza Vaccine: Jun 13, 2011 Seasonal Allergies Seasonal Allergies: No Surgeries History of Surgeries: Yes Surgeries: Abdominal, Bowel Surgery, Coronary Stent Respiratory History of Respiratory Disorde: No Cardiovascular History of Cardiac Disorders: Yes Cardiac Disorders: Heart Attack, Hypertension Neurological History of Neurological Disord: No Genitourinary History of Genitourinary Disor: No Gastrointestinal History of Gastrointestinal Di: Yes Musculoskeletal History of Musculoskeletal Dis: No Endocrine History of Endocrine Disorders: Yes Endocrine Disorders: Diabetes, Non-Insulin dep HEENT History of HEENT Disorders: No Cancer History of Cancer: Yes Cancer: Colon Psychosocial History of Psychiatric Problem: No Integumentary History of Skin or Integumenta: No Blood Transfusions History of Blood Disorders: No Reviewed Nursing Assessment Reviewed/Agree w Nursing PMH: Yes Family Medical History Significant Family History: No Pertinent Family Hx Family Medial History: Alcoholism Alzheimer's disease Arthritis Asthma Cardiovascular disease Cataracts Colon cancer Coronary thrombosis Diabetes mellitus Hypertension Review of Systems-General Constitutional: no symptoms reported, weakness EENTM: no symptoms reported Respiratory: no symptoms reported Cardiovascular: no symptoms reported Gastrointestinal: nausea, vomiting Genitourinary: decreased output Musculoskeletal: no symptoms reported Skin: no symptoms reported; No change in color, No change in hair/nails Psychiatric/Neurological: Denies Anxiety, Denies Depressed, Denies Emotional Problems Physical Exam-General Problems Physical Exam Vital Signs Vital Signs - First Documented 10/01/19 04:20 Temp 36.6 Pulse 57 Resp 20 B/P (MAP) 85/45 (58) Pulse Ox 98 O2 Delivery Room Air Capillary Refill : Less Than 3 Seconds General Appearance: no apparent distress HEENT: PERRL/EOMI, normal ENT inspection (Dry mucous membranes) Neck: supple Respiratory: chest non-tender, no respiratory distress, no accessory muscle use Cardiovascular: regular rate, rhythm Gastrointestinal: non tender, soft, other (Ileostomy right lower quadrant small mass on ileostomy, stool output present along with gas in the bag) Rectal: deferred Back: no CVA tenderness Extremities: non-tender, normal inspection Neurologic/Psychiatric: no motor/sensory deficits, alert, normal mood/affect, oriented x 3 Skin: normal color, warm/dry Lymphatic: no adenopathy Data Review Labs Laboratory Tests 10/01/19 04:20: White Blood Count 6.0, Red Blood Count 3.76L, Hemoglobin 11.8L, Hematocrit 35L, Mean Corpuscular Volume 93, Mean Corpuscular Hemoglobin 31, Mean Corpuscular Hemoglobin Concent 34, Red Cell Distribution Width 13.6, Platelet Count 144, Mean Platelet Volume 9.4, Neutrophils (%) (Auto) 62, Lymphocytes (%) (Auto) 32, Monocytes (%) (Auto) 6, Eosinophils (%) (Auto) 0, Basophils (%) (Auto) 0, N eutrophils # (Auto) 3.7, Lymphocytes # (Auto) 2.0, Monocytes # (Auto) 0.3, Eosinophils # (Auto) 10.0H, Basophils # (Auto) 0.0, Sodium Level 137, Potassium Level 5.0, Chloride Level 104, Carbon Dioxide Level 18L, Anion Gap 15H, Blood Urea Nitrogen 93H, Creatinine 2.25H, Estimat Glomerular Filtration Rate 30, BUN/Creatinine Ratio 41, Glucose Level 147H, Calcium Level 9.4, Corrected Sharad cium 9.4, Total Bilirubin 0.3, Aspartate Amino Transf (AST/SGOT) 28, Alanine Aminotransferase (ALT/SGPT) 23, Alkaline Phosphatase 41, Total Protein 7.2, Albumin 4.0, Amylase Level 116, Lipase 74 Assessment/Plan Assessment/Plan Assessment/Plan Nausea and vomiting Gastroenteritis Dehydration Ileostomy mass Patient to have diet as he tolerates. Zofran for nausea. He currently has ileostomy output and his abdominal x-rays did not have any findings suggestive of small bowel obstruction. IV hydration Patient states he has surgery planned with Dr. Weeks in upcoming near future for the ileostomy revision. No surgical intervention needed at this time we'll follow Clinical Quality Measures DVT/VTE Risk/Contraindication: Risk Factor Score Per Nursin RFS Level Per Nursing on Admit: 2=Moderate JACQUIE HOOKS DO October 01, 2019 20:36
[2019-10-01] MEDS: SENNA W/DOCUSATE (SENOKOT S) TABLET PO SCH (20:56)
[2019-10-01] MEDS ORDERED: FENOFIBRATE 134 MG (LOFIBRA) CAPSULE PO ONE (20:58)
[2019-10-01] MEDS ORDERED: NON-FORMULARY MEDICATION 1 EA EA (Metformin HCl 1,000 MG) PO SCH (21:00)
[2019-10-01] MEDS ORDERED: BACLOFEN 10 MG (LIORESAL) TAB PO SCH (21:00)
[2019-10-01] MEDS ORDERED: NON-FORMULARY MEDICATION 1 EA EA (Ropinirole HCl 3 MG) PO SCH (21:00)
[2019-10-01] MEDS ORDERED: rOPINIRole 1 MG (REQUIP) TABLET PO SCH (21:00)
[2019-10-01] MEDS ORDERED: NON-FORMULARY MEDICATION 1 EA EA (Fenofibrate Nanocrystallized (Fenofibrate) 145 MG) PO SCH (21:00)
[2019-10-01] MEDS: GABAPENTIN 300 MG (NEURONTIN) CAP PO SCH (21:27)
[2019-10-01] MEDS: ALPRAZolam 0.25 MG (XANAX) TAB PO PRN (21:28)
[2019-10-02 00:38] VITALS: BP 99/57
[2019-10-02] MEDS: NS IV 1000 ML 1,000 ML IV SCH ×3 (01:43→09:16)
[2019-10-02 04:00] VITALS: BP 131/78
[2019-10-02] MEDS: HYDROcodone/APAP 5 MG/325 MG (LORTAB) TAB PO PRN ×2 (04:32→10:29)
[2019-10-02 05:40] LABS: BASOPHILS % (AUTO) 0 % (0-10); EOSINOPHILS # (AUTO) 0.2 10^3/uL (0.0-0.3); EOSINOPHILS % (AUTO) 6 % (0-10); HEMATOCRIT 29 % (40-54); HEMOGLOBIN 9.9 G/DL (13.3-17.7); LYMPHOCYTES % (AUTO) 27 % (12-44); MEAN CORPUSCULAR HEMOGLOBIN 31 PG (25-34); MEAN CORPUSCULAR HGB CONC 34 G/DL (32-36); MEAN CORPUSCULAR VOLUME 93 FL (80-99); MEAN PLATELET VOLUME 9.1 FL (7.4-10.4); MONOCYTES # (AUTO) 0.3 X 10^3 (0.0-1.0); MONOCYTES % (AUTO) 8 % (0-12); NEUTROPHILS # (AUTO) 2.2 X 10^3 (1.8-7.8); NEUTROPHILS % (AUTO) 60 % (42-75); PLATELET COUNT 118 10^3/uL (130-400); RED CELL DISTRIBUTION WIDTH 13.8 % (10.0-14.5); WHITE BLOOD COUNT 3.7 10^3/uL (4.3-11.0)
[2019-10-02 05:51] LABS: ALBUMIN 3.5 GM/DL (3.2-4.5); CHLORIDE 117 MMOL/L (98-107); POTASSIUM 4.1 MMOL/L (3.6-5.0); SODIUM 146 MMOL/L (135-145)
[2019-10-02 05:52] LABS: CALCIUM 8.3 MG/DL (8.5-10.1)
[2019-10-02 05:53] LABS: GLUCOSE 105 MG/DL (70-105)
[2019-10-02 05:54] LABS: TOTAL PROTEIN 6.1 GM/DL (6.4-8.2)
[2019-10-02 05:55] LABS: BILIRUBIN,TOTAL 0.2 MG/DL (0.1-1.0); CARBON DIOXIDE 22 MMOL/L (21-32)
[2019-10-02 05:57] LABS: ALKALINE PHOSPHATASE 33 U/L (40-136); CREATININE SERUM 1.15 MG/DL (0.60-1.30); GFR ESTIMATED > 60
[2019-10-02 05:58] LABS: BUN/CREATININE RATIO 38
[2019-10-02 06:00] LABS: ALANINE AMINOTRANSFERASE 19 U/L (0-55)
[2019-10-02] MEDS ORDERED: metFORMIN 500 MG (GLUCOPHAGE) TAB PO SCH (07:00)
--- NOTE | 2019-10-02 08:13 | Diagnostic Imaging Report ---
Clinical indication: Patient dehydrated. No chest complaints. Exam: Chest x-ray PA and lateral views. Comparisons: None. Findings: Lungs/pleura: Lungs are clear. There is no pneumothorax. There is no pleural effusion. Mediastinum: Unremarkable. Pulmonary vasculature: Unremarkable. Heart: Unremarkable. Bones/extrathoracic soft tissue: There are hypertrophic spurs involving the thoracic spine. Impression: There is no radiographic evidence of acute cardiopulmonary process. Dictated by: Dictated on workstation # [id number]
[2019-10-02 08:19] VITALS: BP 128/77
[2019-10-02] MEDS: ENOXAPARIN 40 MG/0.4 ML (LOVENOX) SYR SC SCH (09:16)
[2019-10-02] MEDS: SENNA W/DOCUSATE (SENOKOT S) TABLET PO SCH (09:16)
[2019-10-02] MEDS: GABAPENTIN 300 MG (NEURONTIN) CAP PO SCH ×2 (09:16→13:18)
--- NOTE | 2019-10-02 10:27 | NUR ---
RD ASSESSMENT PMHx: ID; HTN; DM; CA(colon) PT INTERACTION: Pt was awake and pleasant during nutrition assessment. Pt states current appetite is good. "I kept breakfast down, so that's good." Note avg PO intake 50% x2meal, per chart review. Pt states following a regular diet at home, and has no issues with chewing/swallowing food. Pt states some recent issues with nausea and vomiting, but not of constipation or diarrhea. Note pt has ileostomy and pt states output is good. Note pt currently on bowel regimen of senna BID, per chart review. Pt states recent 12-15# wt loss "in the last week." Note recent 4# wt gain x4mon, per chart review. Upon visual assessment, pt appears to be adequately nourished with no visible signs of muscle/fat wasting and a BMI of 29.7. Pt states current DM management is pretty good, and that his avg blood glucose readings are "between 140-180". Note unable to determine recent HbA1c, per chart review. ABNORMAL NUTRITION-RELATED LAB VALUES LOW: Ca 8.3; alkphos 33; Pro 6.1 HIGH: Na 146; Cl 117; BUN 44 Est. kcal needs: 7761-2337 kcal | 20-25 kcal/kg Est. Pro needs: 69-86 g Pro | 0.8-1.0 g Pro/kg PES STATEMENT: Inadequate oral intake (NI-2.1) related to loss of appetite | nausea | vomiting as evidenced by pt interview | avg PO intake 50% x2meal INTERVENTION: Continue with current diet order of CHO 60g/m 3snack diet. Pt may benefit from nutrition supplementation if PO intake declines. Discussed and provided dietary education on CHO counting. Discussed portion control and serving sizes of common foods in pt's diet. Discussed smartphone applications and uses while eating out. Pt verbalized understanding of suggestions and appeared confident to follow them upon discharge. Will continue to follow and reassess as pt needs, intake, and status change. MONITOR/EVALUATE: PO Intake; Plan of Care; Hydration Status; Weight Status; Lab Values Philip Toscano, MS, RD, LD
[2019-10-02] MEDS: ALPRAZolam 0.25 MG (XANAX) TAB PO PRN (10:29)
[2019-10-02] MEDS ORDERED: AMLO5TAB4 PO (10:49)
[2019-10-02] MEDS ORDERED: HYDROcodone/APAP 7.5 MG/325 MG (LORTAB, LORCET PLUS) TABLET PO PRN (11:00)
[2019-10-02] MEDS ORDERED: fentaNYL PATCH 50 MCG (DURAGESIC) TD SCH ×2 (11:00)
[2019-10-02 11:37] VITALS: BP 152/81
--- NOTE | 2019-10-02 15:14 | Progress Note - Surgery ---
Subjective Date Seen by a Provider: October 02, 2019 Time Seen by a Provider: 15:12 Subjective/Events-last exam Patient feeling better today. Has good ileostomy output. No abdominal pain. Not having any nausea or vomiting. No new concerns. Wanting to go home. Objective Exam Vital Signs Date Time Temp Pulse Resp B/P (MAP) Pulse Ox O2 Delivery O2 Flow Rate FiO2 10/02/19 11:37 36.1 63 19 152/81 (104) 99 Room Air 10/02/19 08:19 36.3 60 18 128/77 (94) 100 Room Air 10/02/19 08:00 Room Air 10/02/19 04:00 36.9 56 16 131/78 (95) 97 Room Air 10/02/19 00:38 36.6 63 18 99/57 (71) 96 Room Air 10/01/19 20:00 Room Air 10/01/19 19:19 Room Air 10/01/19 19:19 Room Air 10/01/19 19:00 35.8 60 15 115/65 (82) 100 Room Air 10/01/19 18:41 50 18 137/77 (97) 100 Room Air 10/01/19 15:26 36.8 51 15 86/51 (63) 99 Room Air I & O 10/02/19 07:00 Intake Total 4020 ml Output Total 150 ml Balance 3870 ml Capillary Refill : Less Than 3 Seconds General Appearance: No Apparent Distress, WD/WN, Chronically ill HEENT: PERRL/EOMI, Normal ENT Inspection Neck: Full Range of Motion, Normal Inspection, Non Tender Respiratory: Chest Non Tender, No Accessory Muscle Use, No Respiratory Distress Cardiovascular: Regular Rate, Rhythm, Normal Peripheral Pulses Gastrointestinal: non tender, soft, other (Ileostomy right lower quadrant small mass on ileostomy, stool output present along with gas in the bag) Extremity: Normal Capillary Refill, Normal Inspection, Normal Range of Motion, Non Tender, No Calf Tenderness, No Pedal Edema Neurologic/Psychiatric: Alert, Oriented x3, No Motor/Sensory Deficits, Normal Mood/Affect Skin: Normal Color, Warm/Dry Lymphatic: No Adenopathy Results Lab Laboratory Tests 10/02/19 05:05: White Blood Count 3.7L, Red Blood Count 3.17L, Hemoglobin 9.9L, Hematocrit 29L, Mean Corpuscular Volume 93, Mean Corpuscular Hemoglobin 31, Mean Corpuscular Hemoglobin Concent 34, Red Cell Distribution Width 13.8, Platelet Count 118L, Mean Platelet Volume 9.1, Neutrophils (%) (Auto) 60, Lymphocytes (%) (Auto) 27, Monocytes (%) (Auto) 8, Eosinophils (%) (Auto) 6, Basophils (%) (Auto) 0, Neutrophils # (Auto) 2.2, Lymphocytes # (Auto) 1.0, Monocytes # (Auto) 0.3, Eosinophils # (Auto) 0.2, Basophils # (Auto) 0.0, Sodium Level 146H, Potassium Level 4.1, Chloride Level 117H, Carbon Dioxide Level 22, Anion Gap 7, Blood Urea Nitrogen 44H, Creatinine 1.15, Estimat Glomerular Filtration Rate > 60, BUN/Creatinine Ratio 38, Glucose Level 105, Calcium Level 8.3L, Corrected Calcium 8.7, Total Bilirubin 0.2, Aspartate Amino Transf (AST/SGOT) 18, Alanine Aminotransferase (ALT/SGPT) 19, Alkaline Phosphatase 33L, Total Protein 6.1L, Al bumin 3.5 Assessment/Plan Assessment/Plan Assessment/Plan Nausea and vomiting Gastroenteritis Dehydration Ileostomy mass Patient feeling better. Tolerating diet and having good ileostomy output. Patient states he has surgery planned with Dr. Tariq in upcoming near future for the ileostomy revision. No surgical intervention needed at this time. Will sign off, call if needed. Clinical Quality Measures DVT/VTE Risk/Contraindication: Risk Factor Score Per Nursin RFS Level Per Nursing on Admit: 2=Moderate JACQUIE HOOKS DO October 02, 2019 15:14
[2019-10-02 15:30] VITALS: BP 146/83
[2019-10-02 16:15] VITALS: BP 146/83
[2019-10-02] MEDS ORDERED: OMEGA 3 (FISH OIL) 1000 MG CAP PO SCH (17:00)
[2019-10-02] MEDS ORDERED: FENOFIBRATE 134 MG (LOFIBRA) CAPSULE PO SCH (21:00)
[2019-10-02] MEDS ORDERED: APIXABAN 5 MG (ELIQUIS) TABLET PO SCH (21:00)
[2019-10-05] MEDS ORDERED: PATCH REMOVAL TP SCH (11:00)
== END 2019-10-02 16:16 | disposition home or self-care (01) | DRG 683 ==
LOC: EDUNIT# 04:07 → ER FS 04:10 → 4TH 07:52
PROVIDERS: ADMIT Internal Medicine; ATTEND Internal Medicine
DX: N17.9 Acute kidney failure, unspecified (principal); E86.0 Dehydration; K52.9 Noninfective gastroenteritis and colitis, unspecified; K94.19 Other complications of enterostomy; I12.9 Hypertensive chronic kidney disease with stage 1 through stage 4 chronic kidney disease, or unspecified chronic kidney disease; N18.4 Chronic kidney disease, stage 4 (severe); I25.2 Old myocardial infarction; E11.9 Type 2 diabetes mellitus without complications; G25.81 Restless legs syndrome; Z85.038 Personal history of other malignant neoplasm of large intestine; Z87.891 Personal history of nicotine dependence; Z95.5 Presence of coronary angioplasty implant and graft; Z79.84 Long term (current) use of oral hypoglycemic drugs; Z87.19 Personal history of other diseases of the digestive system
CPT/HCPCS: 36415; 71046; 74022; 80053; 82150; 83690; 85025; 93005; G0378

== ENCOUNTER → 2019-12-03 | Outpatient (CLI) | payer MEDICARE ==
[~2019-12-03] MED LIST changes: +AMLO5TAB4 PO; +APIX5TAB PO; +BACL10TA PO; +CITA20TA9 PO; +FENO145T26 PO; +FENT1PAT9 TD; +GABA300C PO; +HYDR-4342 PO; +IBUP-2473 PO; +INSU100I29 SC; +METF-399 PO; +OLME1TAB82 PO; +OMEG-179 PO; +ROPI2TAB6 PO
[2019-12-03 11:40] LABS: BASOPHILS % (AUTO) 0 % (0-10); EOSINOPHILS % (AUTO) 0 % (0-10); HEMATOCRIT 31 % (40-54); HEMOGLOBIN 10.4 G/DL (13.3-17.7); LYMPHOCYTES # (AUTO) 1.1 X 10^3 (1.0-4.0); LYMPHOCYTES % (AUTO) 23 % (12-44); MEAN CORPUSCULAR HEMOGLOBIN 30 PG (25-34); MEAN CORPUSCULAR HGB CONC 33 G/DL (32-36); MEAN CORPUSCULAR VOLUME 91 FL (80-99); MONOCYTES # (AUTO) 0.2 X 10^3 (0.0-1.0); MONOCYTES % (AUTO) 5 % (0-12); NEUTROPHILS # (AUTO) 3.4 X 10^3 (1.8-7.8); NEUTROPHILS % (AUTO) 71 % (42-75); PLATELET COUNT 145 10^3/uL (130-400); RED CELL DISTRIBUTION WIDTH 13.9 % (10.0-14.5); WHITE BLOOD COUNT 4.8 10^3/uL (4.3-11.0)
[2019-12-03 11:46] LABS: ALANINE AMINOTRANSFERASE 28 U/L (0-55); ALKALINE PHOSPHATASE 64 U/L (40-136); BILIRUBIN,TOTAL 0.3 MG/DL (0.1-1.0); BUN/CREATININE RATIO 38; CALCIUM 9.4 MG/DL (8.5-10.1); CARBON DIOXIDE 22 MMOL/L (21-32); CHLORIDE 106 MMOL/L (98-107); CREATININE SERUM 1.06 MG/DL (0.60-1.30); GFR ESTIMATED > 60; GLUCOSE 172 MG/DL (70-105); POTASSIUM 3.9 MMOL/L (3.6-5.0); SODIUM 139 MMOL/L (135-145)
[2019-12-03 15:17] LABS: TRIGLYCERIDES 1024 MG/DL (<150); VLDL CHOLESTEROL 205 MG/DL (5-40)
[2019-12-03 15:23] LABS: HDL CHOLESTEROL 34 MG/DL (40-60)
[2019-12-05 08:58] LABS: CHOLESTEROL 323 MG/DL (< 200)
== END ==
LOC: LAB FS 10:55
PROVIDERS: ATTEND Nurse Practitioner Family
DX: E78.1 Pure hyperglyceridemia (principal); R53.83 Other fatigue; Z86.2 Personal history of diseases of the blood and blood-forming organs and certain disorders involving the immune mechanism
CPT/HCPCS: 36415; 80053; 80061; 82728; 83540; 85025

== ENCOUNTER 2020-11-17 13:06 | Outpatient (RCR) | payer MEDICARE, MEDICAID ==
[2020-09-05 14:34] LABS: BASOPHILS % (AUTO) 0 % (0-10); EOSINOPHILS % (AUTO) 0 % (0-10); HEMATOCRIT 35 % (40-54); HEMOGLOBIN 11.8 g/dL (13.3-17.7); LYMPHOCYTES # (AUTO) 1.5 10^3/uL (1.0-4.0); LYMPHOCYTES % (AUTO) 28 % (12-44); MEAN CORPUSCULAR HEMOGLOBIN 30 pg (25-34); MEAN CORPUSCULAR HGB CONC 34 g/dL (32-36); MEAN CORPUSCULAR VOLUME 87 fL (80-99); MEAN PLATELET VOLUME 9.1 fL (9.0-12.2); MONOCYTES # (AUTO) 0.3 10^3/uL (0.0-1.0); MONOCYTES % (AUTO) 6 % (0-12); NEUTROPHILS # (AUTO) 3.5 10^3/uL (1.8-7.8); NEUTROPHILS % (AUTO) 65 % (42-75); PLATELET COUNT 157 10^3/uL (130-400); WHITE BLOOD COUNT 5.3 10^3/uL (4.3-11.0)
[2020-09-05 14:52] LABS: ALBUMIN 4.1 GM/DL (3.2-4.5); BILIRUBIN,TOTAL 0.4 MG/DL (0.1-1.0); CALCIUM 9.3 MG/DL (8.5-10.1); CREATININE SERUM 1.38 MG/DL (0.60-1.30); POTASSIUM 4.2 MMOL/L (3.6-5.0); TOTAL PROTEIN 7.6 GM/DL (6.4-8.2)
[~2020-11-17 13:06] MED LIST changes: +HYDR-3817 PO; -HYDR-4342 PO; +OLME-7 PO; -OLME1TAB82 PO
== END 2020-12-04 | disposition home or self-care (01) ==
LOC: ONC 13:06
PROVIDERS: ATTEND Internal Medicine Hematology & Oncology
DX: C18.9 Malignant neoplasm of colon, unspecified (principal); D68.51 Activated protein C resistance; Z86.718 Personal history of other venous thrombosis and embolism; E11.9 Type 2 diabetes mellitus without complications; I10 Essential (primary) hypertension
CPT/HCPCS: 80053; 82378; 85025; 99213; 99214

== ENCOUNTER 2020-12-19 05:41 | Outpatient (CLI) | payer MEDICARE, MEDICAID ==
[~2020-12-19] VITALS: Ht 167.6 cm; Wt 92.1 kg
[2020-12-19] MEDS ORDERED: VALS1TAB72 PO (11:29)
[2020-12-19] MEDS ORDERED: EZET10TA49 PO (11:29)
[2020-12-19] MEDS ORDERED: OLME-7 PO (11:29)
[2020-12-19] MEDS ORDERED: METF-399 PO (11:29)
[2020-12-19] MEDS ORDERED: SIMV20TA26 PO (11:29)
[2020-12-19] MEDS ORDERED: CITA20TA9 PO (11:29)
== END 2020-12-19 12:43 | disposition home or self-care (01) ==
LOC: PREOP 05:41
PROVIDERS: ATTEND Surgery
DX: Z01.818 Encounter for other preprocedural examination (principal)

== ENCOUNTER → 2021-01-27 | Outpatient (CLI) | payer MEDICARE, MEDICAID ==
[~2021-01-27] MED LIST changes: +EZET10TA49 PO; +SIMV20TA26 PO; +VALS1TAB72 PO
== END ==
LOC: CARD 15:15
PROVIDERS: ATTEND Nurse Practitioner Family
DX: I08.0 Rheumatic disorders of both mitral and aortic valves (principal); E11.9 Type 2 diabetes mellitus without complications; E87.1 Hypo-osmolality and hyponatremia; E78.5 Hyperlipidemia, unspecified; Z86.2 Personal history of diseases of the blood and blood-forming organs and certain disorders involving the immune mechanism
CPT/HCPCS: 93306

== ENCOUNTER → 2021-03-06 | Outpatient (CLI) | payer MEDICARE, MEDICAID ==
[~2021-03-06] MED LIST changes: +CATHETER FLUSH 10 ML SYR IV PRN; +DIATRIZOATE MEGLUM/SODIUM 37% 120 ML (GASTROGRAFIN) PO ONE; +HOLD METFORMIN - RECEIVED CONTRAST 20 ML VIAL IV SCH; +IOHEXOL 350 MG/ML 100 ML (OMNIPAQUE 350) VIAL IV ONE; +NS 100 ML (IVPB) BAG IV ONE
[2021-03-06 13:45] LABS: CREATININE SERUM 1.08 MG/DL (0.60-1.30)
--- NOTE | 2021-03-06 15:41 | Diagnostic Imaging Report ---
PROCEDURE: CT abdomen and pelvis with contrast. TECHNIQUE: Multiple contiguous axial images were obtained through the abdomen and pelvis after administration of intravenous contrast. Auto Exposure Controls were utilized during the CT exam to meet ALARA standards for radiation dose reduction. All CT scans use one or more of the following dose optimizing techniques: automated exposure control, MA and/or KvP adjustment based on patient size and exam type or iterative reconstruction. DATE: March 06, 2021. COMPARISON: CT abdomen June 05, 2019. CT abdomen and pelvis September 06, 2011. INDICATION: 56-year-old male, history of colon cancer. Evaluation for metastatic disease. FINDINGS: The visualized portions of the lung bases are clear. The heart is not enlarged. There is no pericardial effusion. There does appear to be diffuse fatty infiltration of the liver. The outer liver contours are not nodular. There is a 6 mm low-attenuation lesion in the right lobe of the liver on axial image 11 which is too small to characterize. The main, right, left portal veins are patent. The gallbladder surgically absent. There is no intrahepatic or extrahepatic bile duct dilation. The main pancreatic duct is not abnormally dilated. Unremarkable appearance of the pancreatic parenchyma. The spleen is normal in size. The adrenal glands are unremarkable. Unremarkable appearance of the renal parenchyma. The urinary collecting systems are not distended. There is no identified renal or ureteral stone. Urinary bladder is unremarkable. There are sutures at the level of the mid sigmoid colon. There is a right lower quadrant ostomy. There are bowel segments herniating through the ostomy site without associated obstruction. There is no free intraperitoneal air. No drainable fluid collection. There is no free pelvic fluid. There are atherosclerotic calcifications. There is no identified abnormally enlarged lymph node in the abdomen or pelvis meeting CT size criteria for adenopathy. There are multilevel degenerative changes of the spine. There is no acute bony abnormality. There is no aggressive bone lesion. IMPRESSION: CT ABDOMEN AND PELVIS. 1. No definite evidence of recurrent or residual malignancy or metastatic disease at the level of the abdomen or pelvis. 2. Right lower quadrant ostomy with bowel herniating through the ostomy site and no associated obstruction. 3. Diffuse fatty infiltration of the liver. 4. 6 mm low-attenuation lesion in the right lobe of liver too small to characterize which is unchanged since at least June 05, 2019. Dictated by: Dictated on workstation # [id number]
== END ==
LOC: RAD FS 13:05
PROVIDERS: ATTEND Surgery
DX: K76.0 Fatty (change of) liver, not elsewhere classified (principal); K76.9 Liver disease, unspecified; Z85.038 Personal history of other malignant neoplasm of large intestine
CPT/HCPCS: 36415; 74177; 82565; 84520

== ENCOUNTER → 2021-11-02 | Outpatient (CLI) | payer MEDICARE, MEDICAID ==
[~2021-11-02] MED LIST changes: -CATHETER FLUSH 10 ML SYR IV PRN; -DIATRIZOATE MEGLUM/SODIUM 37% 120 ML (GASTROGRAFIN) PO ONE; -HOLD METFORMIN - RECEIVED CONTRAST 20 ML VIAL IV SCH; -IOHEXOL 350 MG/ML 100 ML (OMNIPAQUE 350) VIAL IV ONE; -NS 100 ML (IVPB) BAG IV ONE
[2021-11-02 16:33] LABS: BASOPHILS % (AUTO) 1 % (0-10); EOSINOPHILS % (AUTO) 0 % (0-10); HEMATOCRIT 31 % (40-54); HEMOGLOBIN 10.3 g/dL (13.3-17.7); LYMPHOCYTES # (AUTO) 1.3 10^3/uL (1.0-4.0); LYMPHOCYTES % (AUTO) 25 % (12-44); MEAN CORPUSCULAR HEMOGLOBIN 29 pg (25-34); MEAN CORPUSCULAR HGB CONC 33 g/dL (32-36); MEAN CORPUSCULAR VOLUME 85 fL (80-99); MEAN PLATELET VOLUME 8.5 fL (9.0-12.2); MONOCYTES # (AUTO) 0.3 10^3/uL (0.0-1.0); MONOCYTES % (AUTO) 6 % (0-12); NEUTROPHILS # (AUTO) 3.6 10^3/uL (1.8-7.8); NEUTROPHILS % (AUTO) 68 % (42-75); PLATELET COUNT 116 10^3/uL (130-400); WHITE BLOOD COUNT 5.2 10^3/uL (4.3-11.0)
[2021-11-02 16:57] LABS: POTASSIUM 4.5 MMOL/L (3.6-5.0)
[2021-11-02 16:58] LABS: ALBUMIN 4.4 GM/DL (3.2-4.5); BILIRUBIN,TOTAL 0.2 MG/DL (0.1-1.0); CALCIUM 9.6 MG/DL (8.5-10.1); CREATININE SERUM 1.46 MG/DL (0.60-1.30); TOTAL PROTEIN 7.4 GM/DL (6.4-8.2)
== END ==
LOC: LAB FS 15:44
PROVIDERS: ATTEND Nurse Practitioner Family
DX: D68.2 Hereditary deficiency of other clotting factors (principal); E11.69 Type 2 diabetes mellitus with other specified complication; Z86.2 Personal history of diseases of the blood and blood-forming organs and certain disorders involving the immune mechanism
CPT/HCPCS: 36415; 80053; 82728; 83540; 83550; 85025

== ENCOUNTER → 2021-11-30 | Outpatient (CLI) | payer MEDICARE, MEDICAID ==
--- NOTE | 2021-11-30 16:11 | Diagnostic Imaging Report ---
INDICATION: Abdominal pain. TIME OF EXAM: 3:22 PM. COMPARISON: Correlation is made with prior abdominal radiographs from 10/01/2019. There are surgical clips in the right upper quadrant. There appears to be an ostomy in the right abdomen. The bowel gas pattern is nonobstructed. No pathologic calcification is seen. IMPRESSION: No acute feature detected. Dictated by: Dictated on workstation # [id number]
[2021-11-30 16:47] LABS: CREATININE SERUM 1.57 MG/DL (0.60-1.30); POTASSIUM 4.7 MMOL/L (3.6-5.0)
[2021-11-30 16:48] LABS: ALBUMIN 4.4 GM/DL (3.2-4.5); BILIRUBIN,TOTAL 0.3 MG/DL (0.1-1.0); CALCIUM 9.6 MG/DL (8.5-10.1); TOTAL PROTEIN 7.8 GM/DL (6.4-8.2)
== END ==
LOC: LAB FS 15:11
PROVIDERS: ATTEND Nurse Practitioner Family
DX: R10.9 Unspecified abdominal pain (principal); Z87.19 Personal history of other diseases of the digestive system
CPT/HCPCS: 36415; 74018; 80053